=== PATIENT | female | born 1935 | race Caucasian/White ===

== ENCOUNTER 2017-06-06 09:20 | Day surgery (SDC) | payer MEDICARE, OTHER ==
[2017-06-06] MEDS ORDERED: LIDOCAINE 1% W/EPI 1:200,000 MPF 30ML SQ ONE (09:21)
--- NOTE | 2017-06-07 07:15 | Operative Note ---
DATE OF SURGERY: 06/06/2017. PREOPERATIVE DIAGNOSIS: LEFT CARPAL TUNNEL SYNDROME. POSTOPERATIVE DIAGNOSIS: LEFT CARPAL TUNNEL SYNDROME. PROCEDURE: Left carpal tunnel release. STAFF SURGEON: Rickey Waller MD ANESTHESIA: Local. PREPARATION: ChloraPrep. INDIVIDUAL CONSIDERATIONS: None. PROCEDURE: The patient was taken to the operating room and placed supine on the operating table. Her left arm was prepped and draped in the usual fashion. Her left arm then had a successful induction of local anesthesia over the longitudinal wrist crease volarly with 2% Lidocaine with epinephrine. The limb was elevated and the tourniquet was inflated to 250 mmHg. The patient had an incision along the longitudinal wrist crease volarly. Sharp dissection was carried down through the skin and subcutaneous tissues. Small veins were coagulated with a Bovie. Sharp dissection was carried through the palmar fascia , through the short adductor, and then through the transverse metacarpal fascia distally to the superficial arch and proximally to the antebrachial fascia. The recurrent branch was also noted. The median nerve was contused but otherwise intact. No tumors were seen. The tourniquet was let down and hemostasis was obtained with the Bovie. After irrigation, the skin was approximated with interrupted #4-0 nylon in a vertical mattress fashion, and a sterile bulky compressive hand dressing was applied. The patient tolerated the procedure well. Needle and sponge counts were correct. Estimated blood loss was minimal and she was taken back to Recovery in good condition. There were no complications. JOB NUMBER: [id number] MTDD
== END 2017-06-06 13:25 | disposition home or self-care (01) ==
LOC: SUR 09:20
PROVIDERS: ATTEND Orthopaedic Surgery
DX: G56.02 Carpal tunnel syndrome, left upper limb (principal)